=== PATIENT | female | born 1975 | race Caucasian/White ===

== ENCOUNTER 2016-08-25 06:32 | Day surgery (SDC) | payer BC ==
[~2016-08-25] VITALS: Ht 162.6 cm; Wt 90.7 kg
[~2016-08-25 06:32] MED LIST: ADDERALL10 M1 PO; ADDERALL10 MG PO; ADULT LOW DOSE81 M1 PO; ADVAIR 250/501 DISK IH; ALIVE WOMEN'S1 EAC1 PO; AMBIEN5 M1 PO; AMITRIPTYLINE H10 M1 NG; AMLODIPINE BESY10 MG PO; AMOX TR-K CLV1 EAC4 PO; Ambien PO; B-121000 MC2 PO; CATAPRES-TTS 11 EACH TD; CATAPRES-TTS 31 EACH TD; CATAPRES0.2 MG PO; CITALOPRAM HBR20 MG PO; CLONIDINE1 EAC1 TP; COZAAR100 MG PO; Cipro PO; D3 PO; ENDOCET 5-3251 EACH PO; Elavil PO; FENTANYL1 EAC1 TD; FENTANYL1 EAC5 TD; Flagyl PO; Folic Acid PO; GLUCOPHAGE500 MG PO; KEPPRA1000 MG PO; KRILL OIL500 MG PO; LEVETIRACETAM500 MG PO; LIDODERM 5% P1 PATCH TD; LOVENOX80 MG/0.8 SC; LOW DOSE ASPIRI81 M1 PO; Levetiracetam PO; MICONAZOLE NITR45 GM VG; MICROZIDE12.5 M1 PO; MOTRIN800 MG PO; NEURONTIN300 MG PO; NORCO 7.5/321 TABLET PO; NORMODYNE,TRAN200 MG PO; NORVASC5 MG PO; OMEGA 3-6-9 CO1 EACH PO; OXYCODONE5 MG PO; PERCOCET 10/1 TABLET PO; PERCOCET 5/31 TABLET PO; PREDNISONE10 MG PO; PROTONIX40 MG PO; PROZAC20 M1 PO; TOPROL XL50 MG PO; VISKEN5 MG PO; Vitamin B-12 PO; Vitamin D PO; ZESTORETIC,P1 TABLET PO; ZITHROMAX250 MG PO; ZOLPIDEM TARTRA10 MG PO; [UNRECOGNIZED DRUG - OTHER] PO; oxyCODONE PO
[2016-08-25 07:02] VITALS: BP 119/74
[2016-08-25 07:04] LABS: POINT-OF-CARE METER ID UU14174212
[2016-08-25 09:15] LABS: INTERNAL CONTROL VALID? YES
[2016-08-25 09:36] LABS: POINT-OF-CARE METER ID UU13113675
[2016-08-25 10:12] VITALS: BP 125/79
[2016-08-25 11:39] VITALS: BP 113/63
== END 2016-08-25 11:47 | disposition home or self-care (01) ==
LOC: SDC 06:32
PROVIDERS: Podiatrist Foot & Ankle Surgery
DX: G57.52 Tarsal tunnel syndrome, left lower limb (principal); D17.24 Benign lipomatous neoplasm of skin and subcutaneous tissue of left leg; D68.59 Other primary thrombophilia; I10 Essential (primary) hypertension; G40.909 Epilepsy, unspecified, not intractable, without status epilepticus; G89.29 Other chronic pain; M79.671 Pain in right foot; M79.672 Pain in left foot; Z82.49 Family history of ischemic heart disease and other diseases of the circulatory system; Z80.49 Family history of malignant neoplasm of other genital organs; Z80.1 Family history of malignant neoplasm of trachea, bronchus and lung; Z79.891 Long term (current) use of opiate analgesic; Z88.8 Allergy status to other drugs, medicaments and biological substances; Z91.09 Other allergy status, other than to drugs and biological substances
CPT/HCPCS: 82948; 84703; 88304; J0330; J2250; J2405; J3010; S0020